=== PATIENT | female | born 1950 | race Native Hawaiian/Other Pacific Islander ===

== ENCOUNTER 2018-02-16 12:09 | Outpatient (CLI) | payer OTHER, BC | END 2018-02-16 20:25 | disposition home or self-care (01) | LOC: RAD 12:09 | DX: R05 Cough (principal) ==

== ENCOUNTER 2020-10-10 09:27 | Outpatient (CLI) | payer OTHER, BC | END 2020-10-10 19:49 | disposition home or self-care (01) | LOC: INF 09:27 | PROVIDERS: ATTEND Internal Medicine | DX: Z23 Encounter for immunization (principal) | CPT/HCPCS: 96372 ==

== ENCOUNTER 2020-11-07 09:29 | Outpatient (CLI) | payer OTHER, BC | END 2020-11-07 20:12 | disposition home or self-care (01) | LOC: INF 09:29 | PROVIDERS: ATTEND Internal Medicine | DX: Z23 Encounter for immunization (principal) | CPT/HCPCS: 96372 ==

== ENCOUNTER 2022-06-19 10:27 | Outpatient (CLI) | payer OTHER | END 2022-06-19 19:12 | disposition home or self-care (01) | LOC: MAMMO 10:27 | PROVIDERS: ATTEND Nurse Practitioner Family | DX: Z12.31 Encounter for screening mammogram for malignant neoplasm of breast (principal) ==

== ENCOUNTER 2023-09-23 08:45 | Outpatient (CLI) | payer OTHER | END 2023-09-23 19:05 | disposition home or self-care (01) | LOC: MAMMO 08:45 | PROVIDERS: ATTEND Nurse Practitioner Family | DX: Z12.31 Encounter for screening mammogram for malignant neoplasm of breast (principal); Z13.820 Encounter for screening for osteoporosis; N95.8 Other specified menopausal and perimenopausal disorders ==